=== PATIENT | male | born 1960 | race African-American/Black ===

== ENCOUNTER 2023-04-21 01:01 | Inpatient (IN) | payer MEDICAID ==
[~2023-04-21] VITALS: Ht 167.6 cm; Wt 57.6 kg
[2023-04-21] MEDS: FUROSEMIDE 20 MG/2 ML VIAL IV ONE (01:45)
[2023-04-21 01:46] LABS: BASOPHILS # (AUTO) 0.1 K/uL (0.0-0.2); HEMATOCRIT 44 % (39-51); HEMOGLOBIN 14.5 g/dL (13.5-17.5); LYMPHOCYTES # (AUTO) 2.4 K/uL (0.8-4.8); LYMPHOCYTES % (AUTO) 32.3 % (20.0-44.0); MEAN CORPUSCULAR HEMOGLOBIN 28 PG (26.0-33.0); MEAN CORPUSCULAR HGB CONC 33 g/dl (31.0-36.0); MEAN CORPUSCULAR VOLUME 84 fL (80-96); MONOCYTES # (AUTO) 0.9 K/uL (0.1-1.30); MONOCYTES % (AUTO) 11.8 % (2.0-12.0); NEUTROPHILS # (AUTO) 4.1 K/uL (1.8-8.9); NEUTROPHILS % (AUTO) 54.9 % (43.0-81.0); PLATELET COUNT (AUTO) 292 K/uL (150-450); RED BLOOD CELL COUNT(AUTO) 5.26 MIL/uL (4.5-6.0); RED CELL DISTRIBUTION WIDTH 15.5 % (11.5-15.0); WHITE BLOOD COUNT (AUTO) 7.5 K/uL (4.3-11.0)
[2023-04-21 02:12] LABS: ALANINE AMINOTRANSFERASE 59 U/L (12-78); ALBUMIN 2.7 g/dL (3.4-5.0); ALKALINE PHOSPHATASE 171 U/L (46-116); ASPARTATE AMINOTRANSFERASE 53 U/L (15-37); BILIRUBIN,DIRECT 0.4 mg/dL (0.0-0.2); BILIRUBIN,TOTAL 1.2 mg/dL (0.2-1.0); CALCIUM, SERUM 8.7 mg/dL (8.5-10.1); CARBON DIOXIDE 25 mmol/L (21-32); CHLORIDE 103 mmol/L (98-107); CREATININE 1.4 mg/dL (0.6-1.3); GLUCOSE 122 mg/dL (74-106); NT-PRO BNP 17006 pg/mL (0-125); SODIUM SERUM 137 mmol/L (136-145); TOTAL PROTEIN, SERUM 6.6 g/dL (6.4-8.2); UREA NITROGEN, BLOOD 16 mg/dL (7-18)
[2023-04-21] MEDS ORDERED: PIPERACI/TAZO 3.375GM/D5W 50ML PB IV ONE (04:18)
[2023-04-21] MEDS: PIPERACILLIN /TAZOBACTAM 3.375 G in IV D5W 50 ML IV ONE (04:19)
[2023-04-21] MEDS: AZITHROMYCIN 500 MG in IV D5W 250 ML IV ONE (04:46)
[2023-04-21] MEDS: VANCOMYCIN 1 GM in IV D5W 250 ML IV ONE (04:46)
[2023-04-21 05:49] VITALS: BP 112/64; TEMP 98.4; O2SAT 97
[2023-04-21] MEDS ORDERED: MAGNESIUM HYDROXIDE 30 ML UDC PO PRN (06:30)
[2023-04-21] MEDS ORDERED: ZOLPIDEM TARTRATE 5 MG TABLET PO PRN (06:30)
[2023-04-21] MEDS ORDERED: Z GUARD REMEDY 4 OZ OINT TP PRN (06:30)
[2023-04-21] MEDS ORDERED: MAG HYDROX/AL HYDROX/SIMETH 30 ML UDC PO PRN (06:30)
[2023-04-21] MEDS: PIPERACILLIN /TAZOBACTAM 3.375 G in IV D5W 100 ML IV SCH (08:20)
[2023-04-21] MEDS: PANTOPRAZOLE 40 MG TABLET.DR PO SCH (08:21)
[2023-04-21] MEDS: FUROSEMIDE 40 MG/4 ML VIAL IV SCH (08:21)
[2023-04-21] MEDS: HEPARIN SODIUM, PORCINE 5000 UNITS/1 ML VIAL SQ SCH (09:00)
[2023-04-21] MEDS ORDERED: IPRATROPIUM NEB FS 0.5 MG/2.5 ML AMPUL.NEB NEB PRN (15:00)
[2023-04-21] MEDS ORDERED: ALBUTEROL FS 2.5 MG/3 ML VIAL.NEB NEB PRN (15:00)
[2023-04-21] MEDS: VANCOMYCIN 500 MG in IV D5W 100 ML IV SCH (15:00)
[2023-04-21] MEDS ORDERED: VANCOMYCIN 500 MG in IV D5W 100ml IV SCH (16:00)
[2023-04-21 20:00] VITALS: BP 91/70; TEMP 102.6; O2SAT 100
[2023-04-21] MEDS: ACETAMINOPHEN 325 MG TABLET PO PRN (21:30)
[2023-04-22] MEDS ORDERED: VANCOMYCIN HCL 1.25 GM in IV D5W 250 ML IV SCH
[2023-04-22 08:00] VITALS: BP 105/70; TEMP 98.9; O2SAT 100
[2023-04-22 12:00] VITALS: BP 93/68; TEMP 98.2; O2SAT 96
[2023-04-22 16:00] VITALS: BP 87/57; TEMP 97.2; O2SAT 97
[2023-04-22] MEDS: ONDANSETRON HCL/PF 4 MG/2 ML VIAL IVP PRN (16:46)
[2023-04-22] MEDS: LOSARTAN POTASSIUM 25 MG TABLET PO SCH (17:30)
[2023-04-22] MEDS: METOPROLOL TARTRATE 25 MG TABLET PO SCH (18:22)
[2023-04-22 20:00] VITALS: BP 89/59; TEMP 98; O2SAT 97
[2023-04-23] VITALS: BP 91/63; TEMP 98.6; O2SAT 98
[2023-04-23] MEDS: VANCOMYCIN HCL 1.25 GM in IV D5W 250 ML IV SCH
[2023-04-23 04:00] VITALS: BP 92/58; TEMP 100.8; O2SAT 95
[2023-04-23 07:56] LABS: BASOPHILS % (AUTO) 0.9 % (0.0-2.0); HEMATOCRIT 41 % (39-51); HEMOGLOBIN 13.4 g/dL (13.5-17.5); LYMPHOCYTES # (AUTO) 1.5 K/uL (0.8-4.8); MEAN CORPUSCULAR HEMOGLOBIN 27 PG (26.0-33.0); MEAN CORPUSCULAR HGB CONC 33 g/dl (31.0-36.0); MEAN CORPUSCULAR VOLUME 83 fL (80-96); MONOCYTES # (AUTO) 0.4 K/uL (0.1-1.30); MONOCYTES % (AUTO) 10.7 % (2.0-12.0); NEUTROPHILS # (AUTO) 1.7 K/uL (1.8-8.9); NEUTROPHILS % (AUTO) 46.4 % (43.0-81.0); PLATELET COUNT (AUTO) 267 K/uL (150-450); RED BLOOD CELL COUNT(AUTO) 4.91 MIL/uL (4.5-6.0); RED CELL DISTRIBUTION WIDTH 15.2 % (11.5-15.0); WHITE BLOOD COUNT (AUTO) 3.7 K/uL (4.3-11.0)
[2023-04-23 08:00] VITALS: BP 100/63; TEMP 97.8; O2SAT 93
[2023-04-23 08:08] LABS: CALCIUM, SERUM 8.3 mg/dL (8.5-10.1); CREATININE 1.3 mg/dL (0.6-1.3); POTASSIUM 3.6 mmol/L (3.5-5.1)
[2023-04-23] MEDS: LEVOFLOXACIN (250MG) 250 MG TABLET PO SCH (10:25)
[2023-04-23] MEDS: FUROSEMIDE 40 MG TABLET PO SCH (10:25)
[2023-04-23 12:00] VITALS: BP 92/58; TEMP 98; O2SAT 93
[2023-04-23] MEDS ORDERED: DoBUTamine 500 MG/250 ML PIGGYBACK IV ONE (13:00)
[2023-04-23 16:00] VITALS: BP 101/58; TEMP 98; O2SAT 93
[2023-04-23 20:00] VITALS: BP 92/66; TEMP 99; O2SAT 98
[2023-04-24] VITALS (12 sets, daily range): BP systolic 71–119; BP diastolic 22–81; TEMP 98–99.5; O2SAT 90–98
[2023-04-24] MEDS: DOBUTamine 500 MG in IV D5W 210 ML IV PRN (16:30)
[2023-04-24] MEDS: DOPamine 400MG/D5W 250ML RTU 250 ML IV PRN (21:00)
[2023-04-25] VITALS (85 sets, daily range): BP systolic 68–125; BP diastolic 43–91; TEMP 97.6–98.2; O2SAT 89–99
[2023-04-25 04:25] LABS: BASOPHILS % (AUTO) 0.5 % (0.0-2.0); EOSINOPHILS % (AUTO) 0.1 % (0.0-6.0); HEMATOCRIT 41 % (39-51); LYMPHOCYTES # (AUTO) 1.7 K/uL (0.8-4.8); LYMPHOCYTES % (AUTO) 30.5 % (20.0-44.0); MEAN CORPUSCULAR HEMOGLOBIN 28 PG (26.0-33.0); MEAN CORPUSCULAR HGB CONC 34 g/dl (31.0-36.0); MEAN CORPUSCULAR VOLUME 82 fL (80-96); MONOCYTES # (AUTO) 0.8 K/uL (0.1-1.30); MONOCYTES % (AUTO) 14.2 % (2.0-12.0); NEUTROPHILS % (AUTO) 54.7 % (43.0-81.0); PLATELET COUNT (AUTO) 219 K/uL (150-450); RED BLOOD CELL COUNT(AUTO) 5.05 MIL/uL (4.5-6.0); RED CELL DISTRIBUTION WIDTH 14.9 % (11.5-15.0); WHITE BLOOD COUNT (AUTO) 5.5 K/uL (4.3-11.0)
[2023-04-25 04:37] LABS: CALCIUM, SERUM 8.1 mg/dL (8.5-10.1); CREATININE 1.5 mg/dL (0.6-1.3); POTASSIUM 3.6 mmol/L (3.5-5.1)
[2023-04-25 15:40] LABS: APPEARANCE,URINE CLEAR (CLEAR); BILIRUBIN,URINE NEGATIVE (NEGATIVE); BLOOD, URINE NEGATIVE Ery/uL (NEGATIVE); COLOR,URINE YELLOW (YELLOW); KETONES,URINE NEGATIVE (NEGATIVE); LEUKOCYTE ESTERASE ,URINE NEGATIVE (NEGATIVE); NITRITE, URINE NEGATIVE (NEGATIVE); PROTEIN,URINE 1+ mg/dl (NEGATIVE); UGLUCOSE NEGATIVE (NEGATIVE); UROBILINOGEN,URINE 0.2 EU/dL (0.2)
[2023-04-25 15:49] LABS: ADD URINE CULTURE NO; BACTERIA,URINE None seen /HPF (None Seen); RBC,URINE 0-2 /HPF (0-2); SQUAMOUS EPITHELIAL CELL,UR 0-2 /HPF (None Seen); WBC,URINE 0-2 /HPF (0-3)
[2023-04-25 15:50] LABS: CREATININE, URINE 48.4 MG/DL (30.0-125.0); URINE TOTAL PROTEIN 74.6 mg/dL (0-11.9)
[2023-04-25 16:37] LABS: EOSINOPHIL,URINE None Seen
[2023-04-26] VITALS (92 sets, daily range): BP systolic 71–156; BP diastolic 48–121; TEMP 97.5–98; O2SAT 95–96
[2023-04-26 05:20] LABS: BASOPHILS % (AUTO) 0.5 % (0.0-2.0); EOSINOPHILS # (AUTO) 0.1 K/uL (0.0-0.7); EOSINOPHILS % (AUTO) 1.5 % (0.0-6.0); HEMATOCRIT 43 % (39-51); LYMPHOCYTES # (AUTO) 1.9 K/uL (0.8-4.8); MEAN CORPUSCULAR HEMOGLOBIN 27 PG (26.0-33.0); MEAN CORPUSCULAR HGB CONC 33 g/dl (31.0-36.0); MEAN CORPUSCULAR VOLUME 82 fL (80-96); MONOCYTES # (AUTO) 0.7 K/uL (0.1-1.30); MONOCYTES % (AUTO) 15.9 % (2.0-12.0); NEUTROPHILS # (AUTO) 1.5 K/uL (1.8-8.9); NEUTROPHILS % (AUTO) 36.1 % (43.0-81.0); PLATELET COUNT (AUTO) 213 K/uL (150-450); RED BLOOD CELL COUNT(AUTO) 5.19 MIL/uL (4.5-6.0); RED CELL DISTRIBUTION WIDTH 14.8 % (11.5-15.0); WHITE BLOOD COUNT (AUTO) 4.2 K/uL (4.3-11.0)
[2023-04-26 05:32] LABS: BILIRUBIN,TOTAL 0.5 mg/dL (0.2-1.0); CALCIUM, SERUM 8.4 mg/dL (8.5-10.1); CREATININE 1.1 mg/dL (0.6-1.3); MAGNESIUM 1.9 mg/dL (1.8-2.4); PHOSPHORUS 3.4 mg/dL (2.5-4.9); POTASSIUM 3.5 mmol/L (3.5-5.1); TOTAL PROTEIN, SERUM 6.4 g/dL (6.4-8.2)
[2023-04-26] MEDS: FUROSEMIDE 40 MG/4 ML VIAL IV SCH ×2 (08:05→17:37)
[2023-04-26] MEDS: PROSOURCE / PROSTAT (PYXIS) 30 ML UDC PO SCH (16:20)
[2023-04-27] VITALS (81 sets, daily range): BP systolic 63–154; BP diastolic 43–137; TEMP 97.6–98.1; O2SAT 96
[2023-04-27 04:02] LABS: BASOPHILS % (AUTO) 0.6 % (0.0-2.0); EOSINOPHILS # (AUTO) 0.1 K/uL (0.0-0.7); EOSINOPHILS % (AUTO) 2.5 % (0.0-6.0); HEMATOCRIT 43 % (39-51); HEMOGLOBIN 14.4 g/dL (13.5-17.5); LYMPHOCYTES # (AUTO) 1.6 K/uL (0.8-4.8); LYMPHOCYTES % (AUTO) 42.4 % (20.0-44.0); MEAN CORPUSCULAR HEMOGLOBIN 27 PG (26.0-33.0); MEAN CORPUSCULAR HGB CONC 33 g/dl (31.0-36.0); MEAN CORPUSCULAR VOLUME 82 fL (80-96); MONOCYTES # (AUTO) 0.5 K/uL (0.1-1.30); MONOCYTES % (AUTO) 14.2 % (2.0-12.0); NEUTROPHILS # (AUTO) 1.5 K/uL (1.8-8.9); NEUTROPHILS % (AUTO) 40.3 % (43.0-81.0); PLATELET COUNT (AUTO) 239 K/uL (150-450); RED BLOOD CELL COUNT(AUTO) 5.29 MIL/uL (4.5-6.0); WHITE BLOOD COUNT (AUTO) 3.7 K/uL (4.3-11.0)
[2023-04-27 04:34] LABS: CALCIUM, SERUM 8.6 mg/dL (8.5-10.1); CREATININE 1.2 mg/dL (0.6-1.3); POTASSIUM 3.4 mmol/L (3.5-5.1)
[2023-04-27 09:13] LABS: *SPE A/G RATIO 0.6 (0.7-1.7); *SPE ALBUMIN 2.4 g/dL (2.9-4.4); *SPE ALPHA-1-GLOBULIN 0.4 g/dL (0.0-0.4); *SPE ALPHA-2-GLOBULIN 1.1 g/dL (0.4-1.0); *SPE GLOBULIN, TOTAL 3.8 g/dL (2.2-3.9); *SPE M-SPIKE Not Observed g/dL (Not Observed); *SPE PROTEIN TOTAL 6.2 g/dL (6.0-8.5); *SPEGAMMA GLOBULIN 1.3 g/dL (0.4-1.8)
[2023-04-27] MEDS: POTASSIUM CHLORIDE 20 MEQ TAB.PRT.SR PO ONE ×2 (09:42→21:06)
[2023-04-27 11:11] LABS: PTH, INTACT 28 pg/mL (15-65)
[2023-04-28] VITALS (74 sets, daily range): BP systolic 65–148; BP diastolic 45–114; TEMP 97.9–98.5; O2SAT 95
[2023-04-28 05:26] LABS: CALCIUM, SERUM 8.8 mg/dL (8.5-10.1); CREATININE 1.2 mg/dL (0.6-1.3); POTASSIUM 3.9 mmol/L (3.5-5.1)
[2023-04-28] MEDS: IV NS 0.9% 1,000 ML BAG IV ONE (12:50)
[2023-04-28] MEDS: MIDODRINE HCL (5MG) 5 MG TABLET PO SCH (13:12)
[2023-04-29] VITALS (76 sets, daily range): BP systolic 69–143; BP diastolic 46–129; TEMP 97.8–98.6; O2SAT 95–99
[2023-04-29] MEDS: MIDODRINE HCL (5MG) 5 MG TABLET PO SCH (17:48)
[2023-04-29] MEDS: METOPROLOL TARTRATE 25 MG TABLET PO SCH (17:50)
[2023-04-30] VITALS (90 sets, daily range): BP systolic 79–152; BP diastolic 47–100; TEMP 97.8–98.4; O2SAT 90–95
[2023-04-30] MEDS ORDERED: DoBUTamine 500 MG/250 ML PIGGYBACK IV ONE (08:30)
[2023-04-30] MEDS: DOBUTamine 500 MG in IV D5W 210 ML IV PRN (09:09)
[2023-05-01] VITALS (78 sets, daily range): BP systolic 63–127; BP diastolic 45–88; TEMP 98–98.6; O2SAT 95
[2023-05-02] VITALS (33 sets, daily range): BP systolic 83–154; BP diastolic 51–143; TEMP 97.7–99.1
[2023-05-02 04:14] LABS: BASOPHILS # (AUTO) 0.1 K/uL (0.0-0.2); BASOPHILS % (AUTO) 1.7 % (0.0-2.0); EOSINOPHILS # (AUTO) 0.2 K/uL (0.0-0.7); EOSINOPHILS % (AUTO) 2.7 % (0.0-6.0); HEMATOCRIT 40 % (39-51); HEMOGLOBIN 13.2 g/dL (13.5-17.5); LYMPHOCYTES # (AUTO) 1.9 K/uL (0.8-4.8); LYMPHOCYTES % (AUTO) 22.8 % (20.0-44.0); MEAN CORPUSCULAR HEMOGLOBIN 27 PG (26.0-33.0); MEAN CORPUSCULAR HGB CONC 33 g/dl (31.0-36.0); MEAN CORPUSCULAR VOLUME 81 fL (80-96); MONOCYTES # (AUTO) 1.6 K/uL (0.1-1.30); NEUTROPHILS # (AUTO) 4.5 K/uL (1.8-8.9); NEUTROPHILS % (AUTO) 53.8 % (43.0-81.0); PLATELET COUNT (AUTO) 376 K/uL (150-450); RED BLOOD CELL COUNT(AUTO) 4.89 MIL/uL (4.5-6.0); RED CELL DISTRIBUTION WIDTH 15.2 % (11.5-15.0); WHITE BLOOD COUNT (AUTO) 8.4 K/uL (4.3-11.0)
[2023-05-02 04:25] LABS: CALCIUM, SERUM 8.6 mg/dL (8.5-10.1); CREATININE 1.1 mg/dL (0.6-1.3)
[2023-05-02 11:22] LABS: ANISOCYTOSIS 1+; BAND % (MANUAL) 4 % (0.0-5.0); BASOPHILS % (MANUAL) 0 % (0.0-2.0); EOSINOPHILS % (MANUAL) 2 % (0-4); LYMPHOCYTES % (MANUAL) 18 % (16-48); MONOCYTES % (MANUAL) 15 % (0-11.0); NEUTROPHILS % (MANUAL) 61 (42-76); PLATELET ESTIMATE ADEQUATE
[2023-05-03] VITALS (13 sets, daily range): BP systolic 89–132; BP diastolic 57–79; TEMP 97–98.8; O2SAT 98–99
[2023-05-03] MEDS: LOSARTAN POTASSIUM 25 MG TABLET PO SCH (13:58)
[2023-05-04 08:00] VITALS: BP 153/76; TEMP 98.6; O2SAT 94
[2023-05-04 08:50] VITALS: BP 124/79
== END 2023-05-04 12:53 | disposition home or self-care (01) | DRG 194 ==
LOC: ER 02:28 → TELE1 04:04 → EDBD 04:04 → MEDSG1 04-23 15:16 → TELE-TD 04-24 13:44 → ICU 04-24 20:45 → TELE1 05-03 10:01
PROVIDERS: ADMIT Nurse Practitioner Acute Care
DX: I13.0 Hypertensive heart and chronic kidney disease with heart failure and stage 1 through stage 4 chronic kidney disease, or unspecified chronic kidney disease (principal); N17.0 Acute kidney failure with tubular necrosis; R57.0 Cardiogenic shock; E87.1 Hypo-osmolality and hyponatremia; Z59.00 Homelessness unspecified; N18.9 Chronic kidney disease, unspecified; I50.43 Acute on chronic combined systolic (congestive) and diastolic (congestive) heart failure; Z20.822 Contact with and (suspected) exposure to COVID-19; M89.8X9 Other specified disorders of bone, unspecified site; I42.9 Cardiomyopathy, unspecified; Z91.199 Patient's noncompliance with other medical treatment and regimen due to unspecified reason; Z53.20 Procedure and treatment not carried out because of patient's decision for unspecified reasons; F32.A Depression, unspecified; F39 Unspecified mood [affective] disorder; F06.31 Mood disorder due to known physiological condition with depressive features
CPT/HCPCS: 36415; 71045-TC; 80048-TC; 80053-TC; 80076-TC; 80202-TC; 81001; 82550-TC; 82570-TC; 83735-TC; 83880; 83935-TC; 83970; 84100-TC; 84155; 84165; 84300-TC; 84484-TC; 85025-TC; 87040-TC; 87081-TC; 93307-TC; 97112-TC; 97530-TC; A4223; G0378; J0456; J1250; J1265; J1644; J1940; J2405; J2543; J3370; J7050; J7060